=== PATIENT | male | born 1960 | race American Indian/Alaskan Native ===

== ENCOUNTER 2018-10-28 06:18 | Observation (INO) | payer MEDICAID, MEDICARE ==
[2018-10-28] MEDS ORDERED: LACTATED RINGERS 1,000 ML ONE (07:03)
[2018-10-28] MEDS ORDERED: XYLOCAINE MPF 2% ONE (07:17)
[2018-10-28] MEDS ORDERED: DIPRIVAN 10 MG/ML IV ONE (07:17)
[2018-10-28] MEDS ORDERED: SUBLIMAZE ONE (07:17)
[2018-10-28] MEDS ORDERED: DECADRON ONE (07:19)
[2018-10-28] MEDS ORDERED: MARCAINE 0.25% INFILTRATI ONE ×2 (07:19→07:45)
[2018-10-28] MEDS ORDERED: ANTIBIOTIC OINT TP ONE (07:19)
[2018-10-28] MEDS ORDERED: XYLOCAINE 1% 20 mL ONE (07:19)
[2018-10-28] MEDS ORDERED: VERSED ONE (07:45)
[2018-10-28] MEDS ORDERED: XYLOCAINE 1% 20 mL INFILTRATI ONE (07:45)
[2018-10-28] MEDS ORDERED: NEOSPORIN GU IR ONE ×2 (08:10→08:15)
[2018-10-28] MEDS ORDERED: ANCEF/STERILE WATER 2 GM/20 ML IV NR (09:00)
[2018-10-28] MEDS ORDERED: PERCOCET 5/325 PO PRN (09:17)
--- NOTE | 2018-10-28 09:18 | Anesthesia Consultation ---
Anesthesia Consult and Med Hx Date of service: 10/28/18 - Airway Anesthetic Teeth Evaluation: Poor ROM Head & Neck: Inadequate (decreased extension) Mental/Hyoid Distance: Adequate - Pre-Operative Health Status ASA Pre-Surgery Classification: ASA2 Proposed Anesthetic Plan: MAC - Pulmonary Hx Smoking: Yes (1/2 PPD) Hx Respiratory Symptoms: Yes (chronic bronchitis; inhaler prn) SOB: No - Cardiovascular System Hx Hypertension: Yes (noncompliant with antihypertensives) Hx Heart Attack/AMI: No Hx Percutaneous Transluminal Coronary Angioplasty (PTCA): No Hx Peripheral Vascular Disease: Yes (s/p R BKA) - Central Nervous System CVA: No - Gastrointestinal Hx Gastroesophageal Reflux Disease: No - Endocrine Hx Insulin Dependent Diabetes: No Hx Non-Insulin Dependent Diabetes: No - Other Systems Hx Obesity: No - Additional Comments Anesthesia Medical History Comments: No hx anesthetic complications.
--- NOTE | 2018-10-28 09:19 | Anesthesia Day of Surgery ---
Anesthesia Day of Surgery - Day of Surgery Patient Examined: Yes Patient H&P Reviewed: Yes Patient is NPO: Yes
[2018-10-28] MEDS ORDERED: DILAUDID ONE (09:31)
[2018-10-28] MEDS ORDERED: PERCOCET 5/325 ONE (09:32)
[2018-10-28] MEDS: DILAUDID IV PRN ×2 (09:33→09:40)
[2018-10-28] MEDS ORDERED: LACTATED RINGERS 1,000 ML IV SCH (10:00)
[2018-10-28 10:45] VITALS: BP 151/84
--- NOTE | 2018-10-28 11:36 | Post Anesthesia Evaluation ---
- Post Anesthesia Evaluation Patient Participated: Yes Airway Patent: Yes Stable Respiratory Function: Yes Nausea/Vomiting: No Temp > 96.8F: Yes Pain Manageable: Yes Adequeate Hydration: Yes Anesthesia Complications: No
--- NOTE | 2018-10-29 00:52 | Operative Report ---
PREOPERATIVE DIAGNOSES: 1. Osteomyelitis, fifth ray. 2. Nonhealing wound. POSTOPERATIVE DIAGNOSES: 1. Osteomyelitis, fifth ray. 2. Nonhealing wound. SURGICAL PROCEDURE: Aggressive debridement of bone and soft tissue with rotational flap. TOURNIQUET: None. ESTIMATED BLOOD LOSS: Less than 10 mL. PROCEDURE IN DETAIL: The patient was brought into the operating room, placed on the operating table in supine position. Following intravenous sedation, the patient was given 2 grams of Ancef. At this time, after adequate anesthesia was obtained, the patient was given 3 mL of 1:1 mixture of 1% lidocaine plain plus 0.25% Marcaine plain into the affected area. After adequate anesthesia was obtained, let it be noted that the foot was cleansed with alcohol and further prepped with a sterile technique and prepped and draped without incident. At this time, attention was directed to the open wound at the distal aspect of the fifth digit that extended with hyperpigmentation proximally to the fifth metatarsal head. At this time, two semi-convergent elliptical incision was made to encapsulate the open wound with serous drainage noted and was passed from the operative field to be sent to the laboratory for further diagnostic evaluation. Let it be noted that exploration carried deep into the fourth interspace and plantarly and proximally at the metatarsophalangeal joint head. Let it be noted that there was significant nonviable tissue,that were pretty yellow discoloration. Let it be noted, it was removed without incident. Let it be noted, the culture was performed, aerobic, anaerobic, and fungal cultures. The area was pulse lavaged with gentamicin mix. At this time with a lazy-S incision was then made plantarly. The tissue was thus modified and was transferred and rotated from plantar to laterally to incorporate the defect. In addition, it derotated to feel free distally. At this time, attention was redirected to the affected area in which he was held in position by staff and deep closure was performed with 4-0 Vicryl followed by subcuticular closure with 4-0 Prolene. The patient tolerated the procedure and anesthesia well. Bacitracin ointment, Adaptic and sterile compressive dressing were applied to the affected area. The patient tolerated the procedure and anesthesia well, will be discharged home with both written and oral postoperative instructions. JOB# [id number] NIMA/TELLY MAZARIEGOS
== END 2018-10-28 10:30 | disposition home or self-care (01) ==
LOC: 3A 06:18 → UNDOADMIN 06:18 → 3A 06:42 → INTOOBSV 06:42 → EDSTATUS 07:30
PROVIDERS: ADMIT Podiatrist Foot & Ankle Surgery; ATTEND Podiatrist Foot & Ankle Surgery
DX: M86.8X7 Other osteomyelitis, ankle and foot (principal); I10 Essential (primary) hypertension; F17.200 Nicotine dependence, unspecified, uncomplicated
CPT/HCPCS: 11044; 87075; 87076; 87102; 87116; 87186; 88305; 88311; 96374; G0378; G0379; J0690; J1170; J2250; J2704; J3010; J7120; J1100

== ENCOUNTER 2018-12-16 06:01 | Day surgery (SDC) | payer MEDICARE ==
[~2018-12-16 06:01] MED LIST: ANCEF/STERILE WATER 2 GM/20 ML IV NR
[2018-12-16] MEDS ORDERED: LACTATED RINGERS 1,000 ML IV SCH (07:00)
[2018-12-16] MEDS ORDERED: NACL BACTERIOSTATIC INFILTRATI ONE (07:03)
--- NOTE | 2018-12-16 07:09 | Anesthesia Consultation ---
Anesthesia Consult and Med Hx Date of service: 12/16/18 - Airway Anesthetic Teeth Evaluation: Good (Missing) ROM Head & Neck: Adequate Mental/Hyoid Distance: Adequate Mallampati Class: Class I Intubation Access Assessment: Good - Pre-Operative Health Status ASA Pre-Surgery Classification: ASA3 Proposed Anesthetic Plan: General, MAC - Pulmonary Hx Smoking: Yes (1/2 PPD SINCE 1977) Hx Respiratory Symptoms: Yes (chronic bronchitis; inhaler prn) SOB: No Hx Sleep Apnea: No (JOHN PRE SCREEN HIGH RISK) - Cardiovascular System Hx Hypertension: Yes (noncompliant with antihypertensives) Hx Heart Attack/AMI: No Hx Percutaneous Transluminal Coronary Angioplasty (PTCA): No Hx Peripheral Vascular Disease: Yes (s/p R BKA) - Central Nervous System CVA: No Hx Back Pain: Yes (DECREASED ROM NECK) - Gastrointestinal Hx Gastroesophageal Reflux Disease: No - Endocrine Hx Insulin Dependent Diabetes: No Hx Non-Insulin Dependent Diabetes: No - Hematic Hx Anemia: Yes - Other Systems Hx Cancer: No Hx Obesity: No
--- NOTE | 2018-12-16 07:10 | Anesthesia Day of Surgery ---
Anesthesia Day of Surgery - Day of Surgery Patient Examined: Yes Patient H&P Reviewed: Yes Patient is NPO: Yes
[2018-12-16] MEDS ORDERED: ANTIBIOTIC OINT TP ONE ×2 (07:12→08:40)
[2018-12-16] MEDS ORDERED: MARCAINE 0.25% INFILTRATI ONE (07:12)
[2018-12-16] MEDS ORDERED: XYLOCAINE 1% 20 mL ONE (07:12)
[2018-12-16] MEDS ORDERED: VERSED ONE (07:14)
[2018-12-16] MEDS ORDERED: DILAUDID ONE ×2 (07:14→09:05)
[2018-12-16] MEDS ORDERED: DIPRIVAN 10 MG/ML IV ONE ×2 (07:14→08:10)
[2018-12-16] MEDS ORDERED: XYLOCAINE MPF 2% ONE (07:15)
[2018-12-16] MEDS ORDERED: NEOSPORIN GU IR ONE ×2 (07:33→07:34)
[2018-12-16] MEDS ORDERED: XYLOCAINE TOPICAL 2% 5ML ONE (07:33)
[2018-12-16] MEDS ORDERED: MARCAINE-EPI 0.25%-1:200,000 INFILTRATI ONE (08:08)
[2018-12-16] MEDS ORDERED: XYLOCAINE 1% 20 mL INFILTRATI ONE (08:08)
[2018-12-16] MEDS ORDERED: XYLOCAINE TOPICAL 2% 30ML TP ONE (08:40)
[2018-12-16] MEDS: DILAUDID IV PRN ×2 (09:10→09:20)
[2018-12-16] MEDS ORDERED: BENADRYL ONE (09:28)
--- NOTE | 2018-12-16 09:44 | XRay Report ---
LEFT FOOT, 3 views: History: Status post amputation fifth toe No comparison. There has been recent amputation of the distal fifth metatarsal and fifth toe. The remaining bony structures are intact and unremarkable. No significant joint pathology. No bony destruction. Soft tissue ulceration and soft tissue swelling of the great toe is noted medially. Mild diffuse vascular calcifications are also noted. IMPRESSION: Amputation of the distal fifth metatarsal and fifth toe. Soft tissue swelling and ulceration of the great toe.
[2018-12-16 10:07] VITALS: BP 159/87
--- NOTE | 2018-12-16 17:22 | Post Anesthesia Evaluation ---
- Post Anesthesia Evaluation Patient Participated: Yes Airway Patent: Yes Stable Respiratory Function: Yes Nausea/Vomiting: No Temp > 96.8F: Yes Pain Manageable: Yes Adequeate Hydration: Yes Anesthesia Complications: No Block Receding Appropriately: Not Applicable Patient on Ventilator: No
--- NOTE | 2018-12-17 09:54 | Operative Report ---
PREOPERATIVE DIAGNOSES: Gangrene, osteomyelitis, left fifth digit. POSTOPERATIVE DIAGNOSES: Gangrene, osteomyelitis, left fifth digit. SURGICAL PROCEDURE: Amputation, fifth digit and partial resection of fifth metatarsal head, left foot with primary closure. ANESTHESIA: Local with IV sedation. TOURNIQUET: None. ESTIMATED BLOOD LOSS: Less than 30 mL. PROCEDURE IN DETAIL: The patient was brought into the operating room, placed on the operating table in the supine position. Following intravenous sedation, the patient was given 2 grams of Ancef prophylactically. At this time, the foot was then scrubbed, prepped and draped in the usual aseptic manner. Status post 6 mL of a 1:1 mixture of 1% lidocaine plain plus 0.25% Marcaine plain into the affected area after cleansing with alcohol. Attention was directed to the gangrenous fifth digit in which a racquet-type incision was made with the base being directed distal and medial and apex proximal lateral to incorporate the affected digit. Let it to be noted there was nonviable tissue noted and with tracking proximally to the fifth metatarsal head, the whole unit was removed without incident and the fifth metatarsal head was transected from distal medial to proximal lateral and passed from the operative field. Both the digit gangrenous and the fifth digit were sent to the laboratory for further diagnosis and evaluation. Area was contoured/bone fifth metatarsal head with rotating football bur. The area was flushed copiously with gentamicin mixed prior to flushing. Deep cultures were performed for aerobic, anaerobic and fungal cultures. At this time, all tissues were inspected for nonviable tissue and removed without incident. Deep closure was performed with 1-0 Vicryl followed by three 1-0 Vicryl. Both simple and horizontal stitch was used superficially with Prolene to reapproximate the incision. Let it be noted that lidocaine gel was applied to the distal forefoot to promote vasodilation and bacitracin, Adaptic and a sterile compression dressing. The patient tolerated anesthesia and procedure well and will be transferred to recovery with vital signs will be monitored. The patient will be discharged home with both written and oral postoperative instructions. JOB# [id number] TLD/NTS
== END 2018-12-16 06:02 | disposition home or self-care (01) ==
LOC: OR 06:01
PROVIDERS: ATTEND Podiatrist Foot & Ankle Surgery
DX: M86.8X7 Other osteomyelitis, ankle and foot (principal); I96 Gangrene, not elsewhere classified; L97.529 Non-pressure chronic ulcer of other part of left foot with unspecified severity; M79.89 Other specified soft tissue disorders; I10 Essential (primary) hypertension; F17.210 Nicotine dependence, cigarettes, uncomplicated; Z79.899 Other long term (current) drug therapy; Z86.2 Personal history of diseases of the blood and blood-forming organs and certain disorders involving the immune mechanism
CPT/HCPCS: 28810; 73630; 87075; 87116; 88302; 88311; J0690; J1170; J1200; J2250; J2704; J7120; 87076; 87186; 88305

== ENCOUNTER 2019-01-13 12:37 | Emergency (ER) | payer MEDICARE ==
[2019-01-13 14:08] VITALS: BP 116/77
[2019-01-13] MEDS ORDERED: THERMAZENE 50 GRAM TP ONE (15:40)
--- NOTE | 2019-01-13 15:50 | Emergency Department Report ---
ED Extremity Problem HPI - General Chief complaint: Laceration/Recheck/Suture Stated complaint: TOE INJURY Time Seen by Provider: 01/13/19 14:44 Source: patient Mode of arrival: Stretcher Limitations: No Limitations - History of Present Illness Initial comments: 58-year-old male presents to ED with bleeding from left foot. Patient underwent left fifth toe amputation [address] Alas. Patient says he was walking around, not using his crutches, and he suddenly began to have bleeding from his foot. Patient says he attempted to reach Dr. Alas but was unable to, so called EMS. -: hour(s) (4) Location: left, other (foot) Severity scale (0 -10): 8 Consistency: now resolved Improves with: nothing Worsens with: weight bearing, walking Associated Symptoms: denies other symptoms - Related Data Home Medications Medication Instructions Recorded Confirmed Last Taken Meloxicam [Mobic] 7.5 mg PO QDAY 10/28/18 12/09/18 10/27/18 22:00 amLODIPine [Norvasc] 5 mg PO DAILY 10/28/18 12/09/18 Unknown Clopidogrel [Plavix] 75 mg PO QDAY 12/16/18 12/16/18 12/15/18 Nf Hydrocodone/Ibuprofen 1 tab PO QDAY 12/16/18 12/16/18 12/15/18 Pravastatin [Pravachol] 20 mg PO QHS 12/16/18 12/16/18 12/15/18 Vitamin E (Dl,Tocopheryl Acet) 2 tab PO QDAY 12/16/18 12/16/18 12/15/18 [Vitamin E-200] Previous Rx's Medication Instructions Recorded Last Taken Type hydrOXYzine PAMOATE [Vistaril] 25 mg PO Q6HR PRN #20 capsule 11/14/15 Unknown Rx Allergies Allergy/AdvReac Type Severity Reaction Status Date / Time No Known Allergies Allergy Verified 11/14/15 12:04 ED Review of Systems ROS: Stated complaint: TOE INJURY Other details as noted in HPI Comment: All other systems reviewed and negative Musculoskeletal: as per HPI ED Past Medical Hx - Past Medical History Previous Medical History?: Yes Hx Hypertension: Yes Hx Heart Attack/AMI: No Hx HIV: No - Surgical History Past Surgical History?: Yes Additional Surgical History: R BKA, left pinky toe amputation - Social History Smoking Status: Current Every Day Smoker Substance Use Type: None - Medications Home Medications: Home Medications Medication Instructions Recorded Confirmed Last Taken Type hydrOXYzine PAMOATE [Vistaril] 25 mg PO Q6HR PRN #20 capsule 11/14/15 12/09/18 Unknown Rx Meloxicam [Mobic] 7.5 mg PO QDAY 10/28/18 12/09/18 10/27/18 22:00 History amLODIPine [Norvasc] 5 mg PO DAILY 10/28/18 12/09/18 Unknown History Clopidogrel [Plavix] 75 mg PO QDAY 12/16/18 12/16/18 12/15/18 History Nf Hydrocodone/Ibuprofen 1 tab PO QDAY 12/16/18 12/16/18 12/15/18 History Pravastatin [Pravachol] 20 mg PO QHS 12/16/18 12/16/18 12/15/18 History Vitamin E (Dl,Tocopheryl Acet) 2 tab PO QDAY 12/16/18 12/16/18 12/15/18 History [Vitamin E-200] ED Physical Exam - General Limitations: No Limitations General appearance: alert, in no apparent distress - Head Head exam: Present: atraumatic, normocephalic - Eye Eye exam: Present: normal appearance - ENT ENT exam: Present: mucous membranes moist - Neck Neck exam: Present: normal inspection - Respiratory Respiratory exam: Present: normal lung sounds bilaterally. Absent: respiratory distress - Cardiovascular Cardiovascular Exam: Present: regular rate, normal rhythm - GI/Abdominal GI/Abdominal exam: Absent: distended - Extremities Exam Extremities exam: Present: other (dressings removed; 5th toe amputated, pt has wound across dorsal left foot with areas of dried blood, no active bleeding; no purulent discharge present; pt s/p right foot amputation) - Neurological Exam Neurological exam: Present: alert, oriented X3 - Psychiatric Psychiatric exam: Present: normal affect, normal mood - Skin Skin exam: Present: warm, dry ED Course Vital Signs 01/13/19 01/13/19 13:22 14:07 Temperature 98.3 F Pulse Rate 85 67 Respiratory 18 18 Rate Blood Pressure 136/83 Blood Pressure 116/77 [Left] O2 Sat by Pulse 98 97 Oximetry - Consultations Consultation #1: 01/13/19 15:10 Spoke w/ Dr Alas. Pictures sent as well. States pt recently had procedure to promote bleeding and it appears to be working. Wants pt to f/u in his office in the morning at 9AM. Critical care attestation.: If time is entered above; I have spent that time in minutes in the direct care of this critically ill patient, excluding procedure time. ED Disposition Clinical Impression: Bleeding from wound Disposition: DC-01 TO HOME OR SELFCARE Is pt being admited?: No Condition: Stable Referrals: MARELY ALAS DPM [Staff Physician] - 01/14/19 9:00 am Time of Disposition: 15:50
== END 2019-01-13 16:13 | disposition home or self-care (01) ==
LOC: ED 12:37
DX: L76.22 Postprocedural hemorrhage of skin and subcutaneous tissue following other procedure (principal); I10 Essential (primary) hypertension; F17.200 Nicotine dependence, unspecified, uncomplicated
CPT/HCPCS: 99283